=== PATIENT | male | born 1955 | race Caucasian/White ===

== ENCOUNTER 2025-01-10 06:22 | Day surgery (SDC) | payer OTHER, SELFPAY ==
[2025-01-10 09:33] LABS: Glucose - Point of Care 125 mg/dl (70-99)
== END 2025-01-10 11:24 | disposition home or self-care (01) ==
LOC: GI 06:22
PROVIDERS: ATTENDING PHYSICIAN Internal Medicine
DX: R10.13 Epigastric pain (principal); R11.0 Nausea; K31.7 Polyp of stomach and duodenum; K31.89 Other diseases of stomach and duodenum; K29.50 Unspecified chronic gastritis without bleeding; K63.89 Other specified diseases of intestine; Z98.0 Intestinal bypass and anastomosis status
CPT/HCPCS: 43251; 88305; 82962; 88342

== ENCOUNTER → 2025-04-16 07:19 | Outpatient (REF) | payer OTHER, SELFPAY | LOC: RAD 07:19 | PROVIDERS: ATTENDING PHYSICIAN Internal Medicine; FAMILY PHYSICIAN Family Medicine | DX: R10.0 Acute abdomen (principal); R10.13 Epigastric pain | CPT/HCPCS: 78264; A9541 ==

== ENCOUNTER → 2025-05-06 14:10 | Outpatient (REF) | payer OTHER, SELFPAY ==
[2025-05-06 15:03] LABS: % Basophils 0.5 % (0-2); % Eosinophils 2.3 % (0-6); % Immature Granulocytes 0.2 % (0-0.5); % Lymphocytes 30.2 % (20.5-51.1); % Monocytes 7.6 % (1.7-9.3); % Neutrophils 59.2 % (42.2-75.2); Absolute Eosinophils 0.1 10^3/uL (0-0.7); Absolute Lymphocytes 1.8 10^3/uL (1.2-3.4); Absolute Monocytes 0.5 10^3/uL (0.1-0.6); Absolute Neutrophils 3.6 10^3/uL (1.4-6.5); Hematocrit 38.7 % (39.0-52.0); Hemoglobin 12.7 g/dL (13.0-18.0); Mean Corp Hgb Conc. 32.8 g/dL (33.0-37.0); Mean Corpuscular Hgb 28.8 pg (27.0-31.0); Mean Corpuscular Volume 87.8 fL (80.0-94.0); Mean Platelet Volume 10.9 fL (7.4-10.4); Nucleated Red Blood Cells % 0 % (-); Platelet Count 168 10^3/uL (130-400); Red Blood Cell Count 4.41 10^6/uL (4.70-6.10); Red Cell Dist. Width 14.4 % (11.5-14.5)
[2025-05-06 15:23] LABS: Blood Urea Nitrogen 21 mg/dl (9-20); Calcium 9.4 mg/dl (8.4-10.2); Carbon Dioxide 26 mmol/L (22-30); Chloride 110 mmol/L (98-107); Glucose 117 mg/dl (70-99); Potassium 4.3 mmol/L (3.5-5.1); Sodium 142 mmol/L (135-145); eGFR > 60.00
== END ==
LOC: RCS 14:10
PROVIDERS: ATTENDING PHYSICIAN Orthopaedic Surgery; FAMILY PHYSICIAN Family Medicine
DX: Z01.818 Encounter for other preprocedural examination (principal)
CPT/HCPCS: 36415; 80048; 85025; 93005

== ENCOUNTER 2025-10-17 06:22 | Day surgery (SDC) | payer OTHER, SELFPAY ==
[2025-10-17 08:22] VITALS: BP 138/97
[2025-10-17 08:23] LABS: Glucose - Point of Care 132 mg/dl (70-99)
[2025-10-17 08:26] VITALS: BMI 29.9
[2025-10-17 09:56] VITALS: BP 109/74
[2025-10-17 10:00] VITALS: BP 112/81
[2025-10-17 10:15] VITALS: BP 108/79
[2025-10-17 10:30] VITALS: BP 118/87
== END 2025-10-17 10:55 | disposition home or self-care (01) ==
LOC: SDS 06:22
PROVIDERS: ATTENDING PHYSICIAN Internal Medicine Gastroenterology
DX: K86.89 Other specified diseases of pancreas (principal); C49.A2 Gastrointestinal stromal tumor of stomach; Z98.0 Intestinal bypass and anastomosis status
CPT/HCPCS: 43237; 82962